=== PATIENT | male | born 1960 | race African-American/Black ===

== ENCOUNTER 2022-07-26 00:05 | Emergency (ER) | payer BC ==
[~2022-07-26] VITALS: Ht 185.4 cm; Wt 84.0 kg
[2022-07-26] VITALS (7 sets, daily range): BP systolic 128–142; BP diastolic 73–86
[2022-07-26 00:45] LABS: HEMATOCRIT 41.1 % (39.0-50.0); HEMOGLOBIN 13.8 g/dl (14.0-18.0); IMMATURE GRANULOCYTES 0.3 % (0.0-5.0); MEAN CELL VOLUME 84.9 fL CALC (80.0-100.0); MEAN CORPUSCULAR HGB 28.5 pG CALC (26.0-32.0); MEAN CORPUSCULAR HGB CONC 33.6 g/dL CAL (32.0-36.0); NEUT# 2.57 thou/uL (1.82-7.42); RED BLOOD COUNT 4.84 mill/uL (4.70-6.10); RED CELL DISTRI WIDTH 14.4 % (11.5-15.5)
[2022-07-26 00:58] LABS: ALKALINE PHOSPHATASE 65 u/l (38-126); ANION GAP 16 (6-22 (CALC)); BILIRUBIN, TOTAL 0.2 mg/dL (0.0-1.4); BUN 19 mg/dL (8-23); BUN/CREATININE RATIO 23 (12-20 (CALC)); CARBON DIOXIDE 23 mmol/l (22-30); CHLORIDE 107 mmol/l (95-108); CREATININE 0.8 mg/dL (0.7-1.3); GFR FOR AFR.AMER. > 60 ML/MIN (>=60 (CALC)); GFR OTHER RACES > 60 ML/MIN (>=60 (CALC)); POTASSIUM 3.5 mmol/l (3.5-5.1); SGOT/AST 30 u/l (19-48); SODIUM 143 mmol/l (137-146); TOTAL PROTEIN 6.7 g/dL (6.3-8.2)
[2022-07-26 01:09] LABS: PROTHROMBIN TIME 10.4 SECONDS (9.0-12.5)
== END 2022-07-26 03:17 | disposition home or self-care (01) | DRG 151 ==
LOC: ED 00:05
PROVIDERS: Emergency Medicine
DX: R04.0 Epistaxis (principal)